=== PATIENT | female | born 1975 | race Caucasian/White ===

== ENCOUNTER 2018-12-17 08:56 | Emergency (ER) | payer OTHER ==
[~2018-12-17] VITALS: Ht 167.6 cm; Wt 77.1 kg
[~2018-12-17 08:56] MED LIST: ALBU90OI61; ALPR1 PO; BENADRYL25 MG PO; BUPR100ER PO; CLON.2 PO; DULO30; FENT100TP TOP; FEXPSEER; Flomax0.4 MG PO; GABA300 PO; HYDPAM25 PO; HYDRA25 PO; IBUP600 PO; ISODICACE; LORA1; LORA1 PO; Norco 10-325 T1 EACH PO; OXYACE5T PO; PROM25 PO; TRAM50; TRAM50 PO; VENL75ER; VENL75ER PO; Zofran Odt4 MG SL; [UNRECOGNIZED DRUG - OTHER]
[2018-12-17] MEDS ORDERED: Voltaren100 GM TOP (09:45)
[2018-12-17] MEDS ORDERED: CYCL10 PO (09:45)
[2018-12-17] MEDS ORDERED: IBUP600 PO (09:45)
== END 2018-12-17 10:02 | disposition home or self-care (01) ==
LOC: ER 08:56
DX: G89.29 Other chronic pain (principal); M54.5 Low back pain; Z88.5 Allergy status to narcotic agent; Z88.8 Allergy status to other drugs, medicaments and biological substances; Z87.891 Personal history of nicotine dependence
CPT/HCPCS: 96372; 99283-25; A9270-GY; J1885

== ENCOUNTER → 2020-10-10 | Outpatient (CLI) | payer OTHER ==
[~2020-10-10] MED LIST changes: +CYCL10 PO; +Voltaren100 GM TOP
== END ==
LOC: LAB SHORT 18:56
DX: R30.0 Dysuria (principal)
CPT/HCPCS: 87086

== ENCOUNTER 2024-08-26 05:59 | Day surgery (SDC) | payer OTHER ==
[2024-08-26] VITALS (18 sets, daily range): BP systolic 112–146; BP diastolic 64–102
[~2024-08-26] VITALS: Ht 167.6 cm; Wt 80.8 kg
[~2024-08-26 05:59] MED LIST changes: +DOTTI1 EA18 TOP; +DULO60 PO; +PROG100 PO
[2024-08-26] MEDS ORDERED: CeFAZolin Sodium 2,000 MG in NS 100 ML IV SCH (06:15)
[2024-08-26] MEDS ORDERED: Lactated Ringer's 1,000 ML IV SCH (06:15)
[2024-08-26] MEDS ORDERED: XYZAL5 MG PO (06:26)
[2024-08-26] MEDS ORDERED: propofoL 200 ML IV ONE (06:39)
[2024-08-26] MEDS ORDERED: Dexmedetomidine HCL 200 MCG / 2 ML ONE (06:39)
[2024-08-26] MEDS ORDERED: Lidocaine HCl 4% 5 ML SDA ONE (06:40)
[2024-08-26] MEDS ORDERED: Ondansetron HCl 2 MG / ML 2ML Vial ONE ×2 (06:46→10:07)
[2024-08-26] MEDS ORDERED: Dexamethasone Sod Phos 10 MG/ML 1ML VIAL ONE (06:46)
[2024-08-26] MEDS ORDERED: Rocuronium Bromide 10 MG/ML 5ML Injection IV ONE (06:46)
[2024-08-26] MEDS ORDERED: Metoclopramide HCl 5MG / ML 2ML Vial ONE (06:46)
[2024-08-26] MEDS ORDERED: DiphenhydrAMINE HCl 50 MG/ML 1ML Vial ONE (06:47)
[2024-08-26] MEDS ORDERED: Sugammadex Sodium 200 MG/2ML SDV (100 MG/ML) ONE (06:47)
[2024-08-26] MEDS ORDERED: Ketorolac Tromethamine 30mg Vial ONE (06:47)
[2024-08-26] MEDS ORDERED: Lidocaine HCl 2% 20 ML MDV ONE (06:48)
[2024-08-26] MEDS ORDERED: Acetaminophen 500 MG Tab PO ONE (07:00)
[2024-08-26] MEDS ORDERED: Scopolamine Hydrobromide Patch TOP ONE (07:00)
[2024-08-26] MEDS ORDERED: Bupivacaine 0.25% Epi 1:200000 30 ML Vial ONE (07:03)
[2024-08-26] MEDS ORDERED: HYDROmorphone HCl/Pf 1MG SYR ONE ×2 (07:09→10:15)
[2024-08-26] MEDS ORDERED: FentaNYL Citrate 50 MCG/ML 2 ML Injection ONE (08:37)
[2024-08-26 10:00] LABS: Source, Urine Foley catheter
[2024-08-26 10:03] LABS: Appearance, Urine Turbid (Clear); Bilirubin, Urine Neg (Neg); Blood, Urine 1+ (Neg); Color, Urine Yellow (P-Yellow); Glucose Qualitative, Urine Neg (Neg); Ketones, Urine 2+ (Neg); Leukocyte Esterase, Urine Neg (Neg); Nitrite, Urine Neg (Neg); Protein, Urine 2+ (Neg); Specific Gravity, Urine 1.025 (1.003-1.022); Urobilinogen, Urine NORM (Normal)
[2024-08-26 10:10] LABS: Amorphous Heavy (0-Heavy); Bacteria Not Seen /hpf; Red Blood Cells, Urine 0-2 /hpf (0-2); Squamous Epithelial Cells Rare /hpf (Few); White Blood Cells, Urine 0-2 /hpf (0-5)
[2024-08-26] MEDS ORDERED: OxyCODONE HCL 5 MG TAB PO PRN ×2 (10:20→13:00)
[2024-08-26] MEDS ORDERED: Acetaminophen 325 MG TABLET PO PRN (10:20)
[2024-08-26] MEDS ORDERED: Ketorolac Tromethamine 30mg Vial IV PRN (10:20)
[2024-08-26] MEDS ORDERED: Naproxen 500 MG Tab PO PRN (10:20)
[2024-08-26] MEDS ORDERED: Simethicone 80 MG Chew PO PRN (10:20)
[2024-08-26] MEDS ORDERED: Lactated Ringer's 1,000 ML IV PRN (10:25)
[2024-08-26] MEDS ORDERED: HYDROmorphone HCl/Pf 1MG SYR IV PRN (10:50)
--- NOTE | 2024-08-26 10:51 | NUR ---
PT ARRIVED TO RM 229 FROM PACU ON GURNEY ACCOMPANIED BY S.O. PT AMBULATED INTO RESTROOM AND VOIDED SMALL AMOUNT BEFORE TRANSFERRING INTO BED. SMALL AMOUNT BLOOD NOTED ON TISSUE PAPER. LCA. HRR. VSS. LAP INCSIONS X5 W/TISS ADHESIVE AND BANDAIDS. ONE BANDAID HAS SMALL AMOUNT SANGUINEOUS DRAINAGE NOTED. CALL LIGHT IN REACH. PROVIDED CRACKERS AND WATER.
[2024-08-26] MEDS ORDERED: Ondansetron HCl 2 MG / ML 2ML Vial IV PRN (11:10)
[2024-08-26] MEDS ORDERED: Ondansetron 4 MG SoluTab SL PRN (11:10)
[2024-08-26] MEDS ORDERED: Promethazine HCl 25 MG Tab PO PRN (11:10)
--- NOTE | 2024-08-26 16:44 | NUR ---
DISCHARGING PT REPORTS PAIN IMPROVED. VOIDING, TOLERATING DIET, VSS. DESIRES TO DC HOME. REVIEWED DC INSTRUCTIONS W/PT; VERBALIZED UNDERSTANDING. IV DC'D CATHETER INTACT. PT DRESSED AND AWAITING WC.
--- NOTE | 2024-08-26 16:50 | NUR ---
DISCHARGED PT LEFT UNIT IN WC, ACCOMPANIED BY SPOUSE AND FAMILY MEMBER W/POSSESSIONS AND DC PAPERWORK IN HAND.
[2024-08-27] MEDS ORDERED: Estradiol 1 MG Tab PO SCH (09:00)
== END 2024-08-26 16:52 | disposition home or self-care (01) ==
LOC: ORSCMMR 05:59 → SURS 10:17 → ORD 11:15 → ORSCMMR 11:15
PROVIDERS: Obstetrics & Gynecology
PROC: 0UT7FZZ Resection of Bilateral Fallopian Tubes, Via Natural or Artificial Opening With Percutaneous Endoscopic Assistance (ICD-10-PCS; principal; 2024-08-26 07:30)
PROC: 0U5F4ZZ Destruction of Cul-de-sac, Percutaneous Endoscopic Approach (ICD-10-PCS; principal; 2024-08-26 07:30)
PROC: 0UT9FZZ Resection of Uterus, Via Natural or Artificial Opening With Percutaneous Endoscopic Assistance (ICD-10-PCS; principal; 2024-08-26 07:30)
PROC: 0UT2FZZ Resection of Bilateral Ovaries, Via Natural or Artificial Opening With Percutaneous Endoscopic Assistance (ICD-10-PCS; principal; 2024-08-26 07:30)
DX: N80.329 Endometriosis of the posterior cul-de-sac, unspecified depth (principal); R10.2 Pelvic and perineal pain; N99.85 Post endometrial ablation syndrome; N94.12 Deep dyspareunia; N83.12 Corpus luteum cyst of left ovary; N83.11 Corpus luteum cyst of right ovary; J45.909 Unspecified asthma, uncomplicated; Z79.899 Other long term (current) drug therapy
CPT/HCPCS: 36415; 81001; 86850; 86900; 86901; 88305; 88307; A9270; J0690; J1100; J1171; J1200; J1885; J2003; J2405; J2704; J2765; J3010; J7120